=== PATIENT | male | born 1985 | race Caucasian/White ===

== ENCOUNTER 2018-08-22 18:06 | Emergency (ER) | payer OTHER ==
[~2018-08-22] VITALS: Ht 175.3 cm; Wt 72.3 kg
[2018-08-22 18:12] VITALS: BP 145/98
--- NOTE | 2018-08-22 19:38 | NUR ---
TO ER BED 3
--- NOTE | 2018-08-22 19:45 | NUR ---
PT TO ED WITH C/O PAIN TO RLQ S/P I&D COMPLETED YESTERDAY AT [place]. PT REPORTS PAIN TO TOUCH. DRAINAGE NOTED TO GAUZE SITE. PT DID NOT FILL ABX FOR TX. NO ODOR NOTED. PT PLACED INTO BED, PENDING MD MOSQUEDA.
--- NOTE | 2018-08-22 19:50 | NUR ---
EDMD AT BEDSIDE PERFORMING MSE
[2018-08-22] MEDS ORDERED: KETOROLAC 30 MG/ML VIAL IM ONE (20:15)
[2018-08-22] MEDS ORDERED: LIDOCAINE MPF 1% 5mL VIAL ONE (20:58)
[2018-08-22] MEDS ORDERED: CLINDAMYCIN 600 MG/4 ML VIAL IM ONE (21:10)
[2018-08-22 21:37] VITALS: BP 137/75
--- NOTE | 2018-08-22 21:54 | NUR ---
Patient discharged with v/s stable. Written and verbal after care instructions given and explained. Patient alert, oriented and verbalized understanding of instructions. Ambulatory with steady gait. All questions addressed prior to discharge. ID band removed. Patient advised to follow up with PMD. Rx of BACTRIM AND IBUPROFEN given. Patient educated on indication of medication including possible reaction and side effects. Opportunity to ask questions provided and answered.
[2018-08-23] MEDS ORDERED: LIDOCAINE 1% 500 MG/50 ML VIAL INJ SCH (00:15)
== END 2018-08-22 21:37 | disposition home or self-care (01) ==
LOC: MED 18:06
DX: L02.211 Cutaneous abscess of abdominal wall (principal)
CPT/HCPCS: 10060; 96372; 99284; J1885; J2001; J3490; 99283

== ENCOUNTER 2018-08-24 15:17 | Emergency (ER) | payer OTHER ==
[~2018-08-24] VITALS: Ht 177.8 cm; Wt 72.6 kg
[2018-08-24 15:22] VITALS: BP 125/95
--- NOTE | 2018-08-24 15:27 | NUR ---
PT. AMBULATED TO LOBBY WITH STEADY GAIT
--- NOTE | 2018-08-24 15:40 | NUR ---
BED IS DOWN, LOCKED, BED RAIL X1, MD NOTIFIED OF PATIENTS CONDITION
--- NOTE | 2018-08-24 15:40 | NUR ---
RE CHECK FOR ABSCESS AND REMOVE PACKING. +SWOLLEN, +REDNESS, +FIRMNESS AROUND SITE WITH DRAINAGE NOTED. -FEVER OR CHILLS. MED HX: GALL STONES ALLERGIES: NONE RX: BACTRIM, IBUPROFEN
--- NOTE | 2018-08-24 16:00 | NUR ---
LINDY AT BEDSIDE
[2018-08-24 16:23] VITALS: BP 122/88
--- NOTE | 2018-08-24 16:23 | NUR ---
Patient discharged with v/s stable. Written and verbal after care instructions given and explained. Patient verbalized understanding. Ambulatory with steady gait. All questions addressed prior to discharge. Advised to follow up with PMD.
== END 2018-08-24 16:23 | disposition home or self-care (01) ==
LOC: MED 15:17
DX: Z48.01 Encounter for change or removal of surgical wound dressing (principal)
CPT/HCPCS: 99283

== ENCOUNTER 2019-01-07 20:48 | Emergency (ER) | payer OTHER ==
[~2019-01-07] VITALS: Ht 177.8 cm; Wt 73.1 kg
[2019-01-07 20:54] VITALS: BP 122/85
--- NOTE | 2019-01-07 20:56 | NUR ---
PT TAKEN TO BED 7.
--- NOTE | 2019-01-07 21:07 | NUR ---
33 YO M KATHERINE SELF PRESENTS TO ED C/O 03/11 CRAMPING LEG PAIN X 3 DAYS. PT STATES PAIN STARTED X 1 WEEK AGO AND WAS SEEN AT [facility] AND WAS DX WITH HIP STRAIN. PT STATES HE HAS BEEN TAKING ALEVE TID AND WAS EFFECTIVE AT FIRST BUT PAIN HAS BEEN INCREASING X PAST 3 DAYS WITH NO RELIEF. PT STATES PAIN FEELS LIKE A [employer] HORSE TO BACK OF RIGHT THIGH AND RADIATES INTO KNEE DOWN INTO CALF. PT REPORTS DIFFICULTY AMBULATING. -- PT AWAKE, ALERT, CALM, COOPERATIVE. ANSWERS QUESTIONS APPROPRIATELY. BEHAVIOR AGE APPROPRIATE. APPEARS UNCOMFORTABLE. -- SKIN PINK, WARM, DRY. BREATHING EVEN, UNLABORED. -- NO BRUISING, SWELLING, OR GROSS DEFORMITY NOTED. [facility]-- DENIES Addendum: 01/07/19 at 2112 by [facility] PT STATES HE LAYS [employer] FOR WORK.
--- NOTE | 2019-01-07 21:12 | NUR ---
Dr. Branch examining patient.
[2019-01-07] MEDS ORDERED: HYDROcodone/APAP 5/325 MG 1 TAB TAB PO ONE (21:15)
--- NOTE | 2019-01-07 21:21 | NUR ---
PT TAKEN TO RAD
--- NOTE | 2019-01-07 21:32 | NUR ---
PT RETURN FROM RAD
[2019-01-07] MEDS ORDERED: MORPHINE SULFATE 4 MG/ML SYR IM ONE (21:45)
--- NOTE | 2019-01-07 21:57 | NUR ---
Ultrasound at bedside.
[2019-01-07 22:53] VITALS: BP 127/79
--- NOTE | 2019-01-07 22:55 | NUR ---
Patient discharged with v/s stable. Written and verbal after care instructions given and explained. Patient alert, oriented and verbalized understanding of instructions. Ambulatory with crutches. All questions addressed prior to discharge. ID band removed. Patient advised to follow up with PMD. Rx of given. Patient educated on indication of medication including possible reaction and side effects. Opportunity to ask questions provided and answered. Addendum: 01/08/19 at 0410 by [facility] Rx of Ibuprofen and [place] given.
== END 2019-01-07 22:55 | disposition home or self-care (01) ==
LOC: MED 20:48
DX: S86.911A Strain of unspecified muscle(s) and tendon(s) at lower leg level, right leg, initial encounter (principal); M25.551 Pain in right hip; X58.XXXA Exposure to other specified factors, initial encounter; Y93.89 Activity, other specified; Y92.89 Other specified places as the place of occurrence of the external cause; Y99.0 Civilian activity done for income or pay
CPT/HCPCS: 73560; 93971; 96372; 99284; J2270; Q0092

== ENCOUNTER 2021-08-08 18:43 | Emergency (ER) | payer OTHER ==
[~2021-08-08] VITALS: Ht 175.3 cm; Wt 74.4 kg
[2021-08-08 18:49] VITALS: BP 147/96
[2021-08-08] MEDS ORDERED: BACITRACIN OINT 500 UNITS/GM PKT TP ONE (19:30)
--- NOTE | 2021-08-08 20:31 | NUR ---
PT AMBULATED TO CHAIR B.
[2021-08-08 20:55] VITALS: BP 122/82
== END 2021-08-08 20:56 | disposition home or self-care (01) ==
LOC: MED 18:43
DX: S40.022A Contusion of left upper arm, initial encounter (principal); Z48.02 Encounter for removal of sutures; W25.XXXA Contact with sharp glass, initial encounter; Y93.89 Activity, other specified; Y92.89 Other specified places as the place of occurrence of the external cause; Y99.8 Other external cause status
CPT/HCPCS: 99282